=== PATIENT | female | born 1995 | race Caucasian/White ===

== ENCOUNTER 2022-02-14 15:44 | Inpatient (IN) | payer BC ==
[2022-02-14] MEDS ORDERED: Nalbuphine HCl 10 MG/ 1ML Amp IVPUSH PRN (17:32)
[2022-02-14] MEDS ORDERED: Lidocaine 1% 50 ML MDV INJECT ONE (17:32)
[2022-02-14] MEDS ORDERED: Ondansetron 4 MG/2 ML SDV IVPUSH PRN (17:32)
[2022-02-14] MEDS ORDERED: Sodium Chloride 0.9% 10 ML Syringe FLUSH PRN (17:32)
[2022-02-14] MEDS ORDERED: Oxytocin/Lactated Ringers 10 UNIT/1,000 ML BAG IV SCH ×2 (17:45)
[2022-02-14] MEDS ORDERED: Lactated Ringers 1,000 ML IV SCH (17:45)
[2022-02-14] MEDS ORDERED: diphenhydrAMINE 50 MG/ML SDV IVPUSH PRN (18:51)
[2022-02-14] MEDS ORDERED: Bupivacaine/fentaNYL/NS 100 ML Bag EPIDUR PRN (18:51)
[2022-02-14] MEDS ORDERED: ePHEDrine 50 MG/ML SDV IVPUSH PRN (18:51)
[2022-02-14] MEDS ORDERED: fentaNYL 100 MCG/2 ML SDV EPIDUR PRN (18:51)
[2022-02-14] MEDS ORDERED: Magnesium Sulfate/Water 2 GM in Premix Bag 1 BAG IV ONE ×2 (20:30→23:00)
[2022-02-14] MEDS ORDERED: Magnesium Sulfate/Water 4 GM in Premix Bag 1 BAG IV ONE ×2 (20:30→23:00)
[2022-02-14] MEDS: Magnesium Sulfate/Water 40 GM/1,000 ML BAG IV SCH (21:13)
[2022-02-14] MEDS: Sodium Chloride 0.9% 10 ML Syringe FLUSH SCH (21:42)
[2022-02-14] MEDS ORDERED: Magnesium Sulfate/Water 40 GM/1,000 ML BAG IV SCH (23:30)
[2022-02-15] MEDS ORDERED: Bupivacaine 0.25% 10 ML SDV ONE
[2022-02-15] MEDS ORDERED: Phenylephrine/Normal Saline 100 MCG/ML 10 ML Syringe ONE
[2022-02-15] MEDS ORDERED: Oxytocin/Lactated Ringers 20 UNIT/1,000 ML BAG IV SCH (01:15)
[2022-02-15] MEDS: Acetaminophen 325 MG Tab PO PRN ×2 (05:26→11:00)
[2022-02-15] MEDS ORDERED: Magnesium Sulfate/Water 40 GM/1,000 ML BAG IV SCH (13:30)
[2022-02-15] MEDS ORDERED: Witch Hazel Medicated Pads 40/Jar TOP PRN (14:06)
[2022-02-15] MEDS ORDERED: Acetaminophen 325 MG Tab PO PRN (14:06)
[2022-02-15] MEDS ORDERED: Docusate Sodium 100 MG Cap PO PRN (14:06)
[2022-02-15] MEDS ORDERED: Benzocaine/Menthol 20%-0.5% Spray 78 GM Cannister TOP PRN (14:06)
[2022-02-15] MEDS: Ibuprofen 600 MG Tab PO PRN ×2 (17:58→23:03)
[2022-02-15] MEDS: Magnesium Sulfate/Water 40 GM/1,000 ML BAG IV SCH (23:05)
[2022-02-16] MEDS: Sodium Chloride 0.9% 10 ML Syringe FLUSH SCH (01:29)
[2022-02-16] MEDS: Ibuprofen 600 MG Tab PO PRN (15:19)
== END 2022-02-17 17:26 | disposition home or self-care (01) | DRG 560 ==
LOC: JD.OBCHECK 15:44 → JD.OB 15:48 → JD.OBCHECK 17:32 → OBSVTOIN 02-15 12:09 → JD.OB 02-15 12:10
PROVIDERS: ADMIT Obstetrics & Gynecology; ATTEND Obstetrics & Gynecology
PROC: 10E0XZZ Delivery of Products of Conception, External Approach (ICD-10-PCS; principal; 2022-02-15)
PROC: 0HQ9XZZ Repair Perineum Skin, External Approach (ICD-10-PCS; 2022-02-15)
PROC: 10907ZC Drainage of Amniotic Fluid, Therapeutic from Products of Conception, Via Natural or Artificial Opening (ICD-10-PCS; 2022-02-15)
PROC: 0KQM0ZZ Repair Perineum Muscle, Open Approach (ICD-10-PCS; 2022-02-15)
PROC: 0U7C7ZZ Dilation of Cervix, Via Natural or Artificial Opening (ICD-10-PCS; 2022-02-15)
PROC: 3E0334Z Introduction of Serum, Toxoid and Vaccine into Peripheral Vein, Percutaneous Approach (ICD-10-PCS; 2022-02-15)
PROC: 3E0R3BZ Introduction of Anesthetic Agent into Spinal Canal, Percutaneous Approach (ICD-10-PCS; 2022-02-15)
DX: O14.14 Severe pre-eclampsia complicating childbirth (principal); O99.62 Diseases of the digestive system complicating childbirth; K21.9 Gastro-esophageal reflux disease without esophagitis; Z3A.37 37 weeks gestation of pregnancy; Z37.0 Single live birth; O70.1 Second degree perineal laceration during delivery; O26.893 Other specified pregnancy related conditions, third trimester; Z67.11 Type A blood, Rh negative
CPT/HCPCS: 01967; 36410; 36415; 51702; 59025; 59409; 82565; 82570; 83615; 83735; 84156; 84450; 84460; 84520; 84550; 85025; 85461; 86592; 86850; 86870; 86900; 86901; A9270-GY; C1726; J2370; J2405; J2590; J2790; J3010; J3475; J3490; J7120

== ENCOUNTER 2025-01-20 05:07 | Inpatient (IN) | payer BC ==
[2025-01-20] MEDS ORDERED: Nalbuphine 10 MG/1 ML Vial IVPUSH PRN (05:40)
[2025-01-20] MEDS ORDERED: Calcium Carbonate 500 MG Tab.Chew PO PRN (05:40)
[2025-01-20] MEDS ORDERED: Sodium Chloride 0.9% 10 ML Syringe FLUSH PRN (05:40)
[2025-01-20] MEDS ORDERED: Lidocaine 1% 50 ML MDV INJECT PRN (05:40)
[2025-01-20] MEDS ORDERED: Ondansetron 4 MG/2 ML SDV IVPUSH PRN (05:40)
[2025-01-20] MEDS ORDERED: Oxytocin/0.9 % Sodium Chloride 30 UNIT/500 ML BAG IV SCH (05:45)
[2025-01-20 06:02] LABS: BASOPHILS PERCENT AUTO 0.3 % (0.0-1.0); EOSINOPHILS PERCENT AUTO 0.3 % (0.0-6.0); HEMATOCRIT 41.5 % (37.0-47.0); HEMOGLOBIN 14.3 gm/dl (12.0-16.0); IMMATURE GRAN ABSOLUTE AUTO 0.03 K/mm3 (0.00-0.05); IMMATURE GRAN PERCENT AUTO 0.3 % (0.0-0.4); LYMPHOCYTES PERCENT AUTO 21.3 % (24.0-44.0); MEAN CORPUSCULAR HEMOGLOBIN 32.6 pg (28.0-32.0); MEAN CORPUSCULAR HGB CONC 34.5 g/dl (32.0-36.0); MEAN CORPUSCULAR VOLUME 94.5 fl (83.0-99.0); MEAN PLATELET VOLUME 9.2 fl (9.4-12.3); MONOCYTES ABSOLUTE AUTO 0.7 K/mm3 (0.0-0.8); MONOCYTES PERCENT AUTO 7.6 % (0.0-8.0); NEUTROPHILS ABSOLUTE AUTO 6.5 K/mm3 (1.8-7.7); NEUTROPHILS PERCENT AUTO 70.2 % (41.0-71.0); PLATELET COUNT,PLT 199 K/mm3 (150-400); RED BLOOD CELL COUNT 4.39 M/mm3 (4.10-5.30); WHITE BLOOD CELL COUNT,WBC 9.31 K/mm3 (3.9-11.3)
[2025-01-20] MEDS ORDERED: ePHEDrine 50 MG/ML SDV IVPUSH PRN (06:17)
[2025-01-20] MEDS ORDERED: diphenhydrAMINE 50 MG/ML SDV IVPUSH PRN (06:17)
[2025-01-20] MEDS: Bupivacaine/fentaNYL/NS 100 ML Bag EPIDUR PRN (06:36)
[2025-01-20] MEDS: Lactated Ringers 1,000 ML IV SCH (06:45)
[2025-01-20] MEDS: Sodium Chloride 0.9% 10 ML Syringe FLUSH SCH (08:05)
[2025-01-20] MEDS: Oxytocin/0.9 % Sodium Chloride 30 UNIT/500 ML BAG IV SCH (10:24)
[2025-01-20] MEDS ORDERED: Acetaminophen 325 MG Tab PO PRN (14:04)
[2025-01-20] MEDS: Witch Hazel Medicated Pads 40/Jar TOP PRN (14:16)
[2025-01-20] MEDS: Benzocaine/Menthol 20%-0.5% Spray 78 GM Cannister TOP PRN (14:17)
[2025-01-20] MEDS: Ibuprofen 600 MG Tab PO SCH ×2 (16:46→16:52)
[2025-01-21] MEDS: Docusate Sodium 100 MG Cap PO PRN (05:09)
[2025-01-21 05:56] LABS: HEMOGLOBIN 13.2 gm/dl (12.0-16.0); MEAN CORPUSCULAR HEMOGLOBIN 33.1 pg (28.0-32.0); MEAN CORPUSCULAR HGB CONC 34.7 g/dl (32.0-36.0); MEAN CORPUSCULAR VOLUME 95.2 fl (83.0-99.0); MEAN PLATELET VOLUME 9.4 fl (9.4-12.3); PLATELET COUNT,PLT 202 K/mm3 (150-400); RED BLOOD CELL COUNT 3.99 M/mm3 (4.10-5.30); WHITE BLOOD CELL COUNT,WBC 10.52 K/mm3 (3.9-11.3)
[2025-01-21] MEDS: Ferrous Sulfate 324 MG Tab.EC PO SCH (08:49)
[2025-01-21] MEDS: Prenatal Multivitamin with Calcium/Folic Acid/Iron Tab PO SCH (09:21)
== END 2025-01-21 15:55 | disposition home or self-care (01) | DRG 560 ==
LOC: JD.OBCHECK 05:07 → JD.OB 05:40 → OBSVTOIN 11:12 → JD.OB 11:51
PROVIDERS: ADMIT Family Medicine; ATTEND Family Medicine
PROC: 10E0XZZ Delivery of Products of Conception, External Approach (ICD-10-PCS; principal; 2025-01-20)
PROC: 10907ZC Drainage of Amniotic Fluid, Therapeutic from Products of Conception, Via Natural or Artificial Opening (ICD-10-PCS; principal; 2025-01-20)
PROC: 3E0R3BZ Introduction of Anesthetic Agent into Spinal Canal, Percutaneous Approach (ICD-10-PCS; principal; 2025-01-20)
PROC: 0KQM0ZZ Repair Perineum Muscle, Open Approach (ICD-10-PCS; principal; 2025-01-20)
PROC: 30233S1 Transfusion of Nonautologous Globulin into Peripheral Vein, Percutaneous Approach (ICD-10-PCS; principal; 2025-01-20)
DX: O99.344 Other mental disorders complicating childbirth (principal); O70.1 Second degree perineal laceration during delivery; O36.8930 Maternal care for other specified fetal problems, third trimester, not applicable or unspecified; Z3A.39 39 weeks gestation of pregnancy; Z37.0 Single live birth; Z67.11 Type A blood, Rh negative; Z98.890 Other specified postprocedural states; Z79.899 Other long term (current) drug therapy; Z79.82 Long term (current) use of aspirin
CPT/HCPCS: 36415; 51701; 59025; 59409; 85025; 85027; 85461; 86592; 86850; 86870; 86900; 86901; A9270-GY; C1758; J2791; J3490; J7120; J7999